=== PATIENT | female | born 1950 | race Caucasian/White ===

== ENCOUNTER → 2023-06-29 13:45 | Outpatient (BNVA) | payer MEDICARE, MEDICAID, SELFPAY | PROVIDERS: PCP Family Medicine; Referring Provider Family Medicine; Visit Provider Student in an Organized Health Care Education/Training Program | DX: J45.50 Severe persistent asthma, uncomplicated (principal); Z79.51 Long term (current) use of inhaled steroids; Z23 Encounter for immunization | CPT/HCPCS: 90694; 99214; G0008 ==

== ENCOUNTER → 2025-02-12 14:32 | Outpatient (BNVA) | payer MEDICARE, MEDICAID, SELFPAY | PROVIDERS: PCP Family Medicine; Referring Provider Family Medicine; Visit Provider Physician Assistant Surgical | DX: J45.50 Severe persistent asthma, uncomplicated (principal) | CPT/HCPCS: 99214 ==